=== PATIENT | male | born 1960 | race Caucasian/White ===

== ENCOUNTER 2023-12-07 07:15 | Outpatient (CLI) | payer BC, SELFPAY ==
--- NOTE | 2023-12-07 08:30 | W.ANESCHARGE ---
Anesthesia Charges Start Date/Time Anesthesia Start Date: 12/07/23 Anesthesia Start Time: 08:00 Stop Date/Time Anesthesia Stop Date: 12/07/23 Anesthesia Stop Time: 08:29
--- NOTE | 2023-12-07 09:32 | W.ANESCHARGE ---
Anesthesia Charges Start Date/Time Anesthesia Start Date: 12/07/23 Anesthesia Start Time: 08:00 Stop Date/Time Anesthesia Stop Date: 12/07/23 Anesthesia Stop Time: 08:29
== END 2023-12-07 07:16 | disposition home or self-care (01) ==
LOC: OP CLINIC 07:15
PROVIDERS: PCP Family Medicine; Visit Provider Surgery
DX: Z12.11 Encounter for screening for malignant neoplasm of colon (principal); D12.0 Benign neoplasm of cecum; D12.7 Benign neoplasm of rectosigmoid junction; Z86.0100 Personal history of colon polyps, unspecified
CPT/HCPCS: 00811; 45385; 88305; J2704

== ENCOUNTER 2024-05-07 08:54 | Outpatient (CLI) | payer BC, SELFPAY | END 2024-05-07 08:55 | disposition home or self-care (01) | PROVIDERS: PCP Family Medicine; Visit Provider Internal Medicine | DX: M25.421 Effusion, right elbow (principal) | CPT/HCPCS: 87070; 87186; 89060 ==

== ENCOUNTER 2024-05-16 07:52 | Outpatient (CLI) | payer BC, SELFPAY | END 2024-05-16 07:53 | disposition home or self-care (01) | PROVIDERS: PCP Family Medicine; Visit Provider Internal Medicine | DX: Z13.228 Encounter for screening for other metabolic disorders (principal); Z13.220 Encounter for screening for lipoid disorders; Z12.5 Encounter for screening for malignant neoplasm of prostate | CPT/HCPCS: 80053; 80061; G0103 ==

== ENCOUNTER 2024-12-09 07:25 | Outpatient (CLI) | payer BC, SELFPAY | END 2024-12-09 07:26 | disposition home or self-care (01) | LOC: NFLDREF 12-10 12:45 | PROVIDERS: PCP Internal Medicine; Referring Provider Internal Medicine; Visit Provider Internal Medicine | DX: E78.5 Hyperlipidemia, unspecified (principal) | CPT/HCPCS: 80061 ==